=== PATIENT | female | born 1975 | race Caucasian/White ===

== ENCOUNTER 2019-02-06 23:46 | Emergency (ER) | payer BC ==
[~2019-02-06] VITALS: Ht 165.1 cm; Wt 80.0 kg
[2019-02-07] MEDS ORDERED: TRAMADOL HCL50 MG PO (00:27)
[2019-02-07 00:52] VITALS: BP 131/72
== END 2019-02-07 00:52 | disposition home or self-care (01) | DRG 563 ==
LOC: ED 23:46
DX: S86.912A Strain of unspecified muscle(s) and tendon(s) at lower leg level, left leg, initial encounter (principal); X58.XXXA Exposure to other specified factors, initial encounter

== ENCOUNTER 2021-01-23 14:56 | Emergency (ER) | payer BC ==
[~2021-01-23] VITALS: Ht 165.1 cm; Wt 85.9 kg
[~2021-01-23 14:56] MED LIST: TRAMADOL HCL50 MG PO
[2021-01-23] MEDS ORDERED: PRILOSEC20 MG/CAP PO (15:18)
[2021-01-23] MEDS ORDERED: PREDNISONE20 MG PO (16:06)
[2021-01-23] MEDS ORDERED: TESSALON PERLE100 MG PO (16:06)
[2021-01-23] MEDS ORDERED: ROBITUSSIN AC10 ML PO (16:06)
[2021-01-23 16:40] VITALS: BP 119/68
== END 2021-01-23 16:40 | disposition home or self-care (01) | DRG 204 ==
LOC: ED 14:56
DX: R05 Cough (principal); R09.89 Other specified symptoms and signs involving the circulatory and respiratory systems; R09.81 Nasal congestion; Z20.822 Contact with and (suspected) exposure to COVID-19